=== PATIENT | female | born 1975 | race Caucasian/White ===

== ENCOUNTER 2016-05-24 09:41 | Emergency (ER) | payer OTHER ==
[~2016-05-24] VITALS: Ht 162.6 cm; Wt 81.7 kg
[~2016-05-24 09:41] MED LIST: APAP500 OR; CIPROFLOXACIN500 M1; CLARITIN10 M2 OR; FLONASE16 GM IH; IBUPROFEN 800800 M1 OR; MICROGESTIN FE1 EAC1 OR; PERCOCET 5-3251 EACH PO
[2016-05-24] MEDS ORDERED: WELLBUTRIN 100100 MG PO (10:03)
[2016-05-24 10:50] VITALS: BP 124/81
[2016-05-24] MEDS ORDERED: MOBIC15 MG PO (10:51)
[2016-05-24] MEDS ORDERED: CYCLOBENZAPRINE5 MG PO (10:52)
[2016-05-24] MEDS ORDERED: NORCO 5-325 TA1 EACH PO (10:55)
== END 2016-05-24 11:11 | disposition home or self-care (01) ==
LOC: ER 09:41
DX: M25.511 Pain in right shoulder (principal); F17.210 Nicotine dependence, cigarettes, uncomplicated